=== PATIENT | female | born 1980 | race Caucasian/White ===

== ENCOUNTER → 2017-09-26 16:35 | Outpatient (CLI) | payer OTHER, SELFPAY | PROVIDERS: Family Provider Physician Assistant; PCP Physician Assistant; Visit Provider Physician Assistant | DX: N75.1 Abscess of Bartholin's gland (principal) | CPT/HCPCS: 87070; 87075; 87077; 87147; 87186; 87205 ==

== ENCOUNTER 2017-10-14 08:31 | Emergency (ER) | payer OTHER, SELFPAY ==
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
[2017-10-14 08:40] VITALS: BP 106/71; PULSE 68; RESP 18; TEMP 37.2; O2SAT 99; BMI 21.2
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
[2017-10-14 10:13] VITALS: BP 115/73; PULSE 71; RESP 18; O2SAT 98
[2017-10-14 10:15] VITALS: BP 115/73; PULSE 71; RESP 18; TEMP 37.2; O2SAT 98; BMI 21.2
== END 2017-10-14 09:52 | disposition home or self-care (01) ==
PROVIDERS: Emergency Provider Emergency Medicine; Family Provider Physician Assistant; PCP Physician Assistant
DX: S13.4XXA Sprain of ligaments of cervical spine, initial encounter (principal); M25.532 Pain in left wrist; V48.5XXA Car driver injured in noncollision transport accident in traffic accident, initial encounter
CPT/HCPCS: 70450; 72125; 73110; 99282; 99284

== ENCOUNTER 2017-10-15 17:38 | Emergency (ER) | payer OTHER, SELFPAY ==
[2017-10-15 17:46] VITALS: BP 134/78; PULSE 70; RESP 18; TEMP 36.6; O2SAT 100; BMI 21.4
[2017-10-15] MEDS: CYCLOBENZAPRINE 10 MG TABLET PO (19:46)
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
[2017-10-15 19:54] VITALS: BP 130/75; PULSE 51; RESP 15; O2SAT 100
[2017-10-15] MEDS: CYCLOBENZAPRINE 10 MG PREPACK 1 BOTTLE MISC (20:25)
[2017-10-15] MEDS: HYDROCODONE/ACET 5/325 PREPACK 1 BOTTLE MISC (20:25)
== END 2017-10-15 20:31 | disposition home or self-care (01) ==
PROVIDERS: Emergency Provider Nurse Practitioner Family; Family Provider Physician Assistant; PCP Physician Assistant
DX: S13.4XXA Sprain of ligaments of cervical spine, initial encounter (principal); V89.2XXA Person injured in unspecified motor-vehicle accident, traffic, initial encounter
CPT/HCPCS: 99282; 99283

== ENCOUNTER 2017-10-28 12:34 | Emergency (ER) | payer OTHER, SELFPAY ==
[2017-10-28 12:40] VITALS: BP 128/82; PULSE 93; RESP 22; TEMP 37.4; O2SAT 100; BMI 21.4
[2017-10-28] MEDS: LORazepam 0.5 MG TABLET 1 MG PO (13:24)
--- NOTE | 2017-10-28 13:55 | ED_ITS ---
HPI - Anxiety <JIM Rodríguez - Last Filed: 10/28/17 22:26> General Chief Complaint: Anxiety Stated Complaint: PANIC ATTACK Time Seen by Provider: 10/28/17 13:07 Source: patient Mode of arrival: ambulatory Limitations: no limitations History of Present Illness HPI narrative: 37-year-old female with history of anxiety and panic attacks as an everyday smoker here for complaint of having panic attack over the past couple of days. She states that she normally takes clonazepam for her symptoms however she is out of her prescription of clonazepam. She states she has had increased stressors over the past couple weeks that she is losing her job. She does have a mental health counselor she does have a follow-up appointment within the next couple of days. she denies any suicidal ideation she denies any homicidal ideation. She denies any physical complaints other than feeling very anxious and tearful. complaint: anxiety Related Data Previous Rx's Medication Instructions Recorded clonazepam 1 mg PO BID PRN #14 tab 10/28/17 Allergies Allergy/AdvReac Type Severity Reaction Status Date / Time No Known Drug Allergies Allergy Verified 10/17/17 08:08 Review of Systems <JIM Rodríguez - Last Filed: 10/28/17 22:26> Constitutional Denies chills, Denies fever(s), Denies lethargy and Denies weakness Eyes Denies change in vision, Denies eye discharge, Denies irritation and Denies loss of vision ENT Ears, Nose, Mouth, and Throat: Denies change in voice, Denies neck pain and Denies sore throat Cardiovascular Denies chest pain, Denies irregular heart rhythm, Denies lightheadedness, Denies palpitations, Denies dyspnea, Denies dyspnea on exertion and Denies orthopnea Respiratory Denies cough, Denies dyspnea, Denies dyspnea on exertion and Denies wheezing Gastrointestinal Gastrointestinal: Denies abdominal pain, Denies change in bowel habits, Denies diarrhea, Denies nausea and Denies vomiting Genitourinary Denies hematuria, Denies flank pain, Denies urinary incontinence and Denies urinary urgency Musculoskeletal Denies neck pain Integumentary/Breasts Denies pruritus, Denies erythema, Denies rash and Denies wounds Neurologic Denies loss of vision and Denies weakness Psychiatric Comments: anxiety / panic attack Endocrine Denies palpitations Hematologic/Lymphatic Denies easy bruising Allergic/Immunologic Denies wheezing Exam <JIM Rodríguez - Last Filed: 10/28/17 22:26> Initial Vital Signs Initial Vital Signs: Vital Signs Temperature 99.4 F 10/28/17 12:40 Pulse Rate 93 H 10/28/17 12:40 Respiratory Rate 22 10/28/17 12:40 Blood Pressure 128/82 10/28/17 12:40 Pulse Oximetry 100 10/28/17 12:40 Const General: cooperative, well developed and anxious Nutritional Appearance: well nourished Orientation: alert, awake, oriented x3 and not confused HENMT Mouth: oral mucosae normal and oropharynx normal Eyes Eyelids: eyelids normal Conjunctivae: conjunctivae normal Sclera: sclerae normal Pupils: PERRL EOM: EOM intact bilaterally Cardio Rate: regular rate Rhythm: regular rhythm Heart Sounds: no click, no gallops, no murmurs and no rubs Pulses: normal peripheral pulses Skin General: no rashes or lesions noted, No jaundice and No petechiae Neuro General: alert, oriented x3, gait normal and no focal motor deficits Speech: speech normal Psych Mood: anxious mood <Gui Aranda DO - Last Filed: 10/29/17 07:16> Initial Vital Signs Initial Vital Signs: Vital Signs Temperature 99.4 F 10/28/17 12:40 Pulse Rate 93 H 10/28/17 12:40 Respiratory Rate 22 10/28/17 12:40 Blood Pressure 128/82 10/28/17 12:40 Pulse Oximetry 100 10/28/17 12:40 Course <JIM Rodríguez - Last Filed: 10/28/17 22:26> Orders Ordered: Discontinued Medications Lorazepam (Ativan) 1 mg PO NOW ONE Stop: 10/28/17 13:20 Last Admin: 10/28/17 13:24 Dose: 1 mg Vital Signs - 8 hr 10/28/17 14:31 Pulse Rate 88 Respiratory Rate 25 H Blood Pressure 117/72 Pulse Oximetry 99 <DO Marcia Partida Last Filed: 10/29/17 07:16> Orders Ordered: Discontinued Medications Lorazepam (Ativan) 1 mg PO NOW ONE Stop: 10/28/17 13:20 Last Admin: 10/28/17 13:24 Dose: 1 mg Vital Signs - 8 hr 10/28/17 14:31 Pulse Rate 88 Respiratory Rate 25 H Blood Pressure 117/72 Pulse Oximetry 99 MDM - Anxiety <Mark StewartJIM moore - Last Filed: 10/28/17 22:26> [facility] Narrative Medical decision making narrative: patient with history of panic attacks and anxiety was given Ativan in the emergency room which helped with her symptoms. She is encouraged to use relaxation techniques to help with her symptoms. Follow up with primary care provider and also mental health counselor in the next few days. She is given a small amount of clonazepam refill to cover for the next few days. Until she get back with primary care provider. For any worsening symptoms return to the emergency room. Discharge Plan Departure Patient Disposition: Home Clinical Impression: Anxiety Discharge Date/Time: 10/28/17 14:32 Interventions: ED Discharge Assessment Last Done: 10/28/17 14:31 Instructions: DI for Anxiety -- Adult Activity Restrictions/Additional Instructions: signs and symptoms presents as panic attack and anxiety. use relaxation techniques as instructed by mental health provider. follow up with her primary care provider later this week. Follow up with her mental health counselor in the next few days. Small amount of clonazepam as prescribed for symptoms over the next few days. For any worsening symptoms return to the emergency room. Prescriptions: New clonazepam 1 mg tablet 1 mg PO BID PRN (Reason: anxiety) Qty: 14 RF: 0 Referrals: Tiffany Welsh PA-C [Primary Care Provider] - <Gui Aranda DO - Last Filed: 10/29/17 07:16> Cosign ED Attending Curtis Attestation: I was immediately available in the department for consultation. Documentation has been reviewed. I agree with assessment and plan.
[2017-10-28 14:31] VITALS: BP 117/72; PULSE 88; RESP 25; O2SAT 99
== END 2017-10-28 14:32 | disposition home or self-care (01) ==
PROVIDERS: Emergency Provider Nurse Practitioner Family; Family Provider Physician Assistant; PCP Physician Assistant
DX: F41.9 Anxiety disorder, unspecified (principal)
CPT/HCPCS: 99282; 99283

== ENCOUNTER → 2017-10-31 16:38 | Outpatient (CLI) | payer OTHER, SELFPAY | PROVIDERS: Family Provider Physician Assistant; PCP Physician Assistant; Visit Provider Obstetrics & Gynecology | DX: N75.0 Cyst of Bartholin's gland (principal) | CPT/HCPCS: 87070; 87075; 87077; 87147; 87205 ==

== ENCOUNTER → 2018-10-24 12:35 | Outpatient (CLI) | payer OTHER, MEDICAID, SELFPAY | PROVIDERS: Family Provider Physician Assistant; PCP Physician Assistant | DX: N75.1 Abscess of Bartholin's gland (principal) | CPT/HCPCS: 87070; 87075; 87077; 87147; 87186; 87205 ==

== ENCOUNTER 2019-10-20 09:22 | Emergency (ER) | payer OTHER, MEDICAID, SELFPAY ==
[2019-10-20 09:46] VITALS: BP 158/94; PULSE 99; RESP 22; TEMP 36.1; O2SAT 100; BMI 23.8
--- NOTE | 2019-10-20 09:47 | ED_ITS ---
HPI - Female Genitourinary General Chief complaint: Back Pain/Injury Stated complaint: REALLY BAD PAIN IN LEFT SIDE Time Seen by Provider: 10/20/19 09:31 Source: patient and family Mode of arrival: Ambulatory Limitations: no limitations History of Present Illness HPI Narrative: 39-year-old female smoker presents with her mother and a chief complaint of a sudden onset left flank pain which is severe, sharp and stabbing. Her pain started about 1 hour ago and she denies much in the way of provocation or palliation. She denies any radiation. She denies any history of the same. She denies any recent injury. She denies urinary complaints such as frequency, urgency or blood. She denies any fever or chills. Related Data Previous Rx's Medication Instructions Recorded clonazepam 1 mg tablet 1 mg PO BID #60 tab 11/15/18 cephalexin [Keflex] 500 mg PO QID 7 Days #28 cap 10/20/19 hydrocodone-acetaminophen 1 tab PO Q4-6H PRN #10 tab 10/20/19 ketorolac 10 mg PO Q6H PRN #14 tab 10/20/19 ondansetron 4 mg PO TID-QID PRN #10 tab 10/20/19 tamsulosin [Flomax] 0.4 mg PO DAILY #10 cap 10/20/19 Allergies Allergy/AdvReac Type Severity Reaction Status Date / Time No Known Drug Allergies Allergy Verified 10/20/19 09:50 Review of Systems Constitutional Constitutional: Denies chills, Denies fatigue, Denies fever(s), Denies frequent falls, Denies lethargy and Denies weakness Eyes Eyes: Denies change in vision, Denies eye discharge, Denies irritation and Denies loss of vision ENT Ears, Nose, Mouth, and Throat: Denies change in voice, Denies dizziness, Denies neck pain, Denies sore throat and Denies throat swelling Cardiovascular Cardiovascular: Denies chest pain, Denies irregular heart rhythm, Denies lightheadedness, Denies palpitations, Denies dyspnea, Denies dyspnea on exertion and Denies orthopnea Respiratory Respiratory: Denies cough, Denies dyspnea, Denies dyspnea on exertion and Denies wheezing Gastrointestinal Gastrointestinal: Denies abdominal pain, Denies change in bowel habits, Denies diarrhea, Denies nausea and Denies vomiting Genitourinary Genitourinary: Reports flank pain Genitourinary: Reports flank pain Musculoskeletal Musculoskeletal: Denies neck pain and Denies numbness Integumentary/Breasts Skin/Breast: Denies pruritus, Denies erythema, Denies rash and Denies wounds Neurologic Neurologic: Denies behavioral changes, Denies confusion, Denies dizziness, Denies frequent falls, Denies loss of vision, Denies numbness and Denies weakness Psychiatric Psychiatric: Denies anxiety, Denies behavioral changes, Denies confusion, Denies depression, Denies homicidal ideation and Denies suicidal ideation Endocrine Endocrine: Denies fatigue, Denies flushing and Denies palpitations Hematologic/Lymphatic Hematologic/Lymphatic: Denies easy bruising Allergic/Immunologic Allergic/Immunologic: Denies urticaria, Denies throat swelling and Denies wheezing Patient History Medical History Abnormal Pap smear of cervix (Resolved 2011) Acne (Chronic) Anxiety (Chronic) Chicken pox (Resolved) Current smoker (Chronic 05/26/10) Depression (Chronic) History of alcohol abuse (Resolved 05/26/10) Insomnia (Chronic) Painful menstrual periods (Resolved) Surgical History Anesthesia (Resolved) History of third molar tooth extraction (Resolved 2012) Family History Father Drug addiction Mother Age: 66 Diabetes mellitus Brother No problems noted. Grandfather Colon cancer Diabetes mellitus with multiple complications Grandmother No problems noted. alcohol intake frequency: a few times a month Substance Use Type: marijuana Exam Narrative Exam Narrative: GENERAL: [39] year old patient appears stated age. Obviously in pain, rocking back and forth and clutching her left flank HEAD: Atraumatic. Normocephalic. EYES: Pupils equal round and reactive. Extraocular motions intact. No scleral icterus. No injection or drainage. ENT: Nose without bleeding, purulent drainage. Throat without erythema, tonsillar hypertrophy or exudate. Airway patent. NECK: Trachea midline. Non tender CARDIOVASCULAR: Regular rate and rhythm without murmurs, gallops, or rubs. RESPIRATORY: Clear to auscultation. Breath sounds equal bilaterally. No wheezes, rales, or rhonchi. GASTROINTESTINAL: Abdomen soft, non-tender, nondistended. EXTREMITIES: No edema or joint tenderness. BACK: Nontender without deformity or crepitance. No flank tenderness. NEURO: AOx3. SKIN: No rash or erythema of visible areas Initial Vital Signs Initial Vital Signs: Vital Signs Temperature 97.0 F L 10/20/19 09:46 Pulse Rate 99 H 10/20/19 09:46 Respiratory Rate 22 10/20/19 09:46 Blood Pressure 158/94 H 10/20/19 09:46 Pulse Oximetry 100 10/20/19 09:46 Course Course Course Narrative: patient feeling much better after the above stated therapies Orders Ordered: ED Orders 10/20/19 09:45 Urine Microscopic Stat 10/20/19 09:52 Basic Metabolic Panel Stat Complete Blood Count AUTO DIFF Stat 10/20/19 09:55 CT kidney ureter bladder (KUB) Stat Discontinued Medications Sodium Chloride (Normal Saline 0.9%) 1,000 mls @ 1,000 mls/hr IV BOLUS ONE Stop: 10/20/19 10:46 Last Infusion: 10/20/19 11:31 Dose: 0 mls/hr Documented by: Infusion: 10/20/19 11:08 Dose: 1,000 mls/hr Documented by: Infusion: 10/20/19 10:45 Dose: 0 mls/hr Documented by: Admin: 10/20/19 10:06 Dose: 1,000 mls/hr Documented by: NITA Ketorolac Tromethamine (Toradol) 15 mg IV NOW ONE Stop: 10/20/19 09:48 Last Admin: 10/20/19 10:06 Dose: 15 mg Documented by: NITA Vital Signs Vital signs: Vital Signs - 8 hr 10/20/19 09:46 10/20/19 11:17 Temperature 97.0 F L Pulse Rate 99 H 80 Respiratory Rate 22 16 Blood Pressure 158/94 H 104/61 Pulse Oximetry 100 100 MDM - Female Genitourinary Lab Data Result diagrams: 10/20/19 09:52 10/20/19 09:52 Labs: Lab Results 10/20/19 10/20/19 10/20/19 Range/Units 09:45 09:52 09:52 WBC 8.7 (4.5-11.0) X10^3/uL RBC 4.62 (4.0-5.2) X10^6/uL Hgb 13.1 (12.0-16.0) g/dL Hct 38.5 (36-46) % MCV 83.3 (80-100) fL MCH 28.3 (26-34) PG MCHC 34.0 (30-36) % RDW 13.3 (11.6-14.8) % Plt Count 273 (150-400) X10^3/uL Neut % (Auto) 50.0 (50-75) % Lymph % (Auto) 33.2 (25-40) % [place] % (Auto) 14.7 H (3-14) % Eos % (Auto) 1.4 L (2-4) % Baso % (Auto) 0.7 (0-2) % Neut # (Auto) 4400 (4665-0817) /uL Lymph # (Auto) 2900 (3623-2743) /uL [place] # (Auto) 1300 H (0-900) /uL Eos # (Auto) 100 (0-450) /uL Baso # (Auto) 100 (0-100) /uL Sodium 138 (137-145) mmol/L Potassium 4.3 (3.4-5.1) mmol/L Chloride 104 (98-107) mmol/L Carbon Dioxide 25 (22-32) mmol/L BUN 8 (7-17) mg/dL Creatinine 0.69 (0.52-1.04) mg/dL Estimated GFR > 60.0 (>60) mL/min BUN/Creatinine Ratio 11.6 (6-22) Glucose 98 (70-100) mg/dL Calcium 9.9 (8.4-10.2) mg/dL Urine RBC 5-10/hpf H (0-5/HPF) Urine WBC None seen (0-5/HPF) Ur Squamous Epith Cells 1-5 /hpf (0-5/HPF) Amorphous Sediment 3+ Urine Bacteria Few (2-10) H (None) Ur Culture Indicated? Cult not indicated Point of Care Testing Test Results Negative Urine Dip Bedside Urine Glucose Negative Bedside Urine Bilirubin - Negative Bedside Urine Ketone - Negative Urine Specific [place] 1.010 Bedside Urine Occult Blood +++ Bedside Urine pH 8.5 Bedside Urine Protein + 30 Bedside Urine Urobilinogen - Negative Bedside Urine Nitrite - Negative Bedside Urine Leukocytes - Negative Esterase Discharge Plan Departure Patient Disposition: Home Clinical Impression: Kidney stone Discharge Date/Time: 10/20/19 12:09 Instructions: DI for Kidney Stones Activity Restrictions/Additional Instructions: *You have been diagnosed with [ left sided kidney stone ] *What to do: *Take medications as directed *Follow up with your primary care provider in 2-3 days, call for an appointment. Let them know you were seen in the Emergency Department and that we ask that you be seen in follow up *Return to ER if you should have any new, worsening or concerning symptoms Prescriptions: New tamsulosin [Flomax] 0.4 mg capsule 0.4 mg PO DAILY Qty: 10 RF: 0 hydrocodone-acetaminophen 5-325 mg tablet 1 tab PO Q4-6H PRN (Reason: pain) Qty: 10 RF: 0 cephalexin [Keflex] 500 mg capsule 500 mg PO QID 7 Days Qty: 28 RF: 0 ketorolac 10 mg tablet 10 mg PO Q6H PRN (Reason: pain) Qty: 14 RF: 0 ondansetron 4 mg tablet,disintegrating 4 mg PO TID-QID PRN (Reason: nausea and vomiting) Qty: 10 RF: 0 No Action clonazepam 1 mg tablet 1 mg PO BID Qty: 60 RF: 2 Referrals: Tiffany Welsh PA-C [Primary Care Provider] - Kely Jones MD [Physician] -
--- NOTE | 2019-10-20 09:55 | DI.CT.S_ITS ---
PROCEDURE: CT KIDNEY URETER BLADDER (KUB) INDICATIONS: severe left flank pain TECHNIQUE: Noncontrast 5 mm thick sections acquired from the diaphragms to the symphysis. 5 mm thick coronal and sagittal reformats were then performed. For radiation dose reduction, the following was used: automated exposure control, adjustment of mA and/or kV according to patient size. COMPARISON: None. FINDINGS: Image quality: Excellent. Lung bases: Lung bases are clear. Heart size is normal. Urinary system: Right kidney: No stone or hydronephrosis. Right ureter: Unremarkable Left kidney: Nonobstructing 2 mm upper pole stone. Very mild hydronephrosis. Minimal perinephric stranding. Left ureter: Mildly prominent difficult to identify the entirety of its course possible distal 3 mm stone versus calcified phlebolith. Bladder: No bladder stones. No bladder wall thickening. Other solid organs: Liver is normal in size. Gallbladder is unremarkable. Pancreas is normal in contours. Spleen is normal in size. No adrenal nodules. Peritoneum and bowel: Unenhanced bowel loops demonstrate normal wall thickness and caliber. No free fluid or air. Nodes and vessels: No retroperitoneal or mesenteric adenopathy by size criteria. Aorta and inferior vena cava are normal in caliber. Abdominal wall: No ventral hernias. Pelvis: No free pelvic fluid. No inguinal hernias or adenopathy. Bones: No suspicious bony lesions. No vertebral body compression fractures. IMPRESSION: 1. There is very mild left hydronephrosis and prominence of the left ureter. There is a question of a 3 mm distal right ureteral stone versus calcified phlebolith. 2. 2 mm nonobstructing left upper pole renal stone. Dictated by: Jordan Dodd M.D. on 10/20/2019 at 10:31 Approved by: Jordan Dodd M.D. on 10/20/2019 at 10:46
[2019-10-20 10:00] LABS: Add Manual Diff / Slide Review NO; Basophils Absolute Auto 100 /uL (0-100); Basophils Percent Auto 0.7 % (0-2); Eosinophils Absolute Auto 100 /uL (0-450); Eosinophils Percent Auto 1.4 % (2-4); Hematocrit 38.5 % (36-46); Hemoglobin 13.1 g/dL (12.0-16.0); Lymphocytes Absolute Auto 2900 /uL (1100-4500); Lymphocytes Percent Auto 33.2 % (25-40); Mean Corpuscular Hemoglobin 28.3 PG (26-34); Mean Corpuscular Volume 83.3 fL (80-100); Monocytes Absolute Auto 1300 /uL (0-900); Monocytes Percent Auto 14.7 % (3-14); Neutrophils Absolute Auto 4400 /uL (1500-7000); Platelet Count 273 X10^3/uL (150-400); Red Blood Cell Count 4.62 X10^6/uL (4.0-5.2); Red Cell Distribution Width 13.3 % (11.6-14.8); White Blood Cell Count 8.7 X10^3/uL (4.5-11.0)
[2019-10-20 10:06] LABS: WBC Urine None Seen (0-5/HPF)
[2019-10-20] MEDS: KETOROLAC 60 MG/2 ML VIAL 15 MG IV (10:06)
[2019-10-20] MEDS: SODIUM CHLORIDE 0.9% 1,000 ML 1000 ML IV (10:06)
[2019-10-20 10:11] LABS: BUN Creatinine Ratio 11.6 (6-22); Blood Urea Nitrogen 8 mg/dL (7-17); Calcium 9.9 mg/dL (8.4-10.2); Carbon Dioxide 25 mmol/L (22-32); Chloride 104 mmol/L (98-107); Estimated Glomerular Filt Rate > 60.0 mL/min (>60); Glucose 98 mg/dL (70-100); HEMOLYSIS 22 (0-50); Potassium 4.3 mmol/L (3.4-5.1); Sodium 138 mmol/L (137-145)
[2019-10-20 10:30] LABS: Amorphous Sediment Urine 3+; Bacteria Urine Few (2-10); Culture Indicated Urine Cult Not Indicated; RBC Urine 5-10/HPF (0-5/HPF); Squamous Epithelial Cell Urine 1-5 /HPF (0-5/HPF)
[2019-10-20 11:17] VITALS: BP 104/61; PULSE 80; RESP 16; O2SAT 100
== END 2019-10-20 12:09 | disposition home or self-care (01) ==
PROVIDERS: Emergency Provider Emergency Medicine; Family Provider Physician Assistant; PCP Physician Assistant
DX: N20.0 Calculus of kidney (principal)
CPT/HCPCS: 36415; 74176; 80048; 81003; 81015; 81025; 85025; 96361; 96374; 99284; J1885

== ENCOUNTER → 2020-09-03 17:53 | Outpatient (CLI) | payer OTHER, MEDICAID, SELFPAY ==
[2020-09-03 18:25] LABS: COVID19 -Nasal RAPID Negative (Negative)
== END ==
PROVIDERS: Family Provider Physician Assistant; PCP Physician Assistant; Visit Provider Physician Assistant
DX: Z20.822 Contact with and (suspected) exposure to COVID-19 (principal)
CPT/HCPCS: 87635